=== PATIENT | female | born 1960 | race Caucasian/White ===

== ENCOUNTER 2020-12-15 08:08 | Day surgery (SDC) | payer BC ==
[2020-11-13 15:26] VITALS: BMI 28.3
[2020-12-15] MEDS ORDERED: BUPIVACAINE HCL/PF 0.25% (2.5MG/ML) 10 ML VIAL ONE (09:48)
[2020-12-15] MEDS ORDERED: MIDAZOLAM HCL 2 MG/2 ML SINGLE DOSE VIAL ONE (09:56)
[2020-12-15] MEDS ORDERED: PROPOFOL 20 ML ONE (09:56)
[2020-12-15] MEDS ORDERED: ONDANSETRON 4 MG/2 ML VIAL ONE (09:57)
[2020-12-15] MEDS ORDERED: ceFAZolin SODIUM 1 GM VIAL ONE (09:57)
[2020-12-15] MEDS ORDERED: DEXAMETHASONE SOD PHOSPHATE 4 MG/1 ML VIAL ONE (09:57)
[2020-12-15] MEDS ORDERED: LIDOCAINE HCL 2% JELLY (5 ML/TUBE) ONE (09:57)
[2020-12-15] MEDS ORDERED: KETOROLAC TROMETHAMINE 30 MG/1 ML VIAL ONE (09:57)
[2020-12-15] MEDS ORDERED: BUPIVACAINE HCL/PF 0.25% (2.5MG/ML) 10 ML VIAL IJ ONE (11:09)
[2020-12-15] MEDS ORDERED: ONDANSETRON 4 MG/2 ML VIAL IVPUSH PRN (11:22)
[2020-12-15] MEDS ORDERED: oxyCODONE HCL 5 MG TABLET PO PRN ×2 (11:22)
[2020-12-15] MEDS ORDERED: PROMETHAZINE HCL 25 MG/1 ML VIAL IVPUSH PRN (11:22)
[2020-12-15] MEDS ORDERED: IBUPROFEN 600 MG TABLET (FP) PO ONE (12:20)
[2020-12-15 12:30] VITALS: TEMP 97.5
[2020-12-15 13:03] VITALS: BP 129/65; PULSE 70
== END 2020-12-15 13:15 | disposition home or self-care (01) ==
LOC: FASU 08:08
PROVIDERS: ATTEND Orthopaedic Surgery
PROC: 0JBD3ZZ Excision of Right Upper Arm Subcutaneous Tissue and Fascia, Percutaneous Approach (ICD-10-PCS; principal; 2020-12-15 10:36)
DX: D17.21 Benign lipomatous neoplasm of skin and subcutaneous tissue of right arm (principal)
CPT/HCPCS: 88304-TC; 94760